=== PATIENT | female | born 1955 | race Two or more races ===

== ENCOUNTER 2024-10-20 11:27 | Outpatient (CLI) | payer OTHER | END 2024-10-20 11:33 | disposition home or self-care (01) | LOC: SONOGRAMA 11:27 | DX: E04.1 Nontoxic single thyroid nodule (principal) ==

== ENCOUNTER 2024-12-07 15:25 | Outpatient (CLI) | payer OTHER ==
[2024-12-07 16:46] LABS: CREATININE SERUM 0.83 mg/dL (0.55-1.02)
== END 2024-12-07 15:31 | disposition home or self-care (01) ==
LOC: LAB 15:25
DX: N20.1 Calculus of ureter (principal)

== ENCOUNTER 2024-12-18 08:53 | Outpatient (CLI) | payer OTHER | END 2024-12-18 09:04 | disposition home or self-care (01) | LOC: MRI 08:53 | DX: G44.201 Tension-type headache, unspecified, intractable (principal); G64 Other disorders of peripheral nervous system; M81.0 Age-related osteoporosis without current pathological fracture; D22.5 Melanocytic nevi of trunk | CPT/HCPCS: 70540; 70553; Q9965 ==

== ENCOUNTER 2025-01-06 13:14 | Outpatient (CLI) | payer OTHER | END 2025-01-06 13:15 | disposition home or self-care (01) | LOC: RAD 13:14 | DX: G44.201 Tension-type headache, unspecified, intractable (principal); E03.9 Hypothyroidism, unspecified; M81.0 Age-related osteoporosis without current pathological fracture; G64 Other disorders of peripheral nervous system; D22.5 Melanocytic nevi of trunk ==